=== PATIENT | male | born 1995 | race Caucasian/White ===

== ENCOUNTER 2017-07-12 13:54 | Emergency (ER) | payer OTHER ==
[2017-07-12 14:50] LABS: #Eosinphils 0.2 thou/uL (0.0-0.7); #Lymphocytes 2.2 thou/uL (1.20-3.40); #Monocytes 0.4 thou/uL (0.11-0.59); #Neutrophils 8.1 thou/uL (1.40-6.50); %Basophils 0.2 % (0.0-1.0); %Eosinophils 1.8 % (0.0-10.0); %Lymphocytes 19.9 % (21.0-51.0); %Monocytes 3.6 % (0.0-10.0); %Neutrophils 74.5 % (42.0-75.0); Hemoglobin 14.9 g/dL (14.0-18.0); Mean Corpuscular HGB CONC 35.2 g/dL (32.0-36.0); Mean Corpuscular Hemoglobin 32.5 pg (27.0-31.0); Mean Corpuscular Volume 92.2 fl (80.0-94.0); Platelet Count 182 thou/uL (130-400); RBC Distribution Width 11.4 % (11.5-14.5); Red Blood Cell (RBC) Count 4.59 mill/uL (4.70-6.10); White Blood Cell (WBC) Count 10.8 thou/uL (4.8-10.8)
[2017-07-12 15:13] LABS: ALT (SGPT) 9 U/L (8-55); AST (SGOT) 15 U/L (5-34); Albumin 4.1 g/dL (3.5-5.0); Alkaline Phosphatase 66 U/L (40-150); Anion Gap 15 mmol/L (10-20); BUN (Urea Nitrogen) 17 mg/dL (8.9-20.6); Bilirubin, Total 0.7 mg/dL (0.2-1.2); Calc. Creatinine Clearance 0 mL/min (70-130); Calcium 8.9 mg/dL (7.8-10.44); Carbon Dioxide 24 mmol/L (22-29); Chloride 107 mmol/L (98-107); Estimated GFR-MDRD Greater than 90; Globulin 2.4 g/dL (2.4-3.5); Glucose 94 mg/dL (70-105); Potassium 3.7 mmol/L (3.5-5.1); Protein, Total 6.5 g/dL (6.0-8.3); Sodium 142 mmol/L (136-145)
--- NOTE | 2017-07-12 15:21 | CT ---
BRAIN CT WITHOUT IV CONTRAST: Date: 07/12/17 HISTORY: 21-year-old male with history of syncope, and nausea and vomiting since 8:00 this morning. FINDINGS: No focal mass or midline shift. No intra or extra-axial hemorrhage. Minimal right maxillary sinus muc osal changes. IMPRESSION: No mass or bleed, or other acute process. POS: [facility]
[2017-07-12] MEDS ORDERED: Morphine 10 MG/ML VIAL ONE (15:28)
[2017-07-12] MEDS ORDERED: Lidocaine 1% w/Epinephrine 1:100K 20 ML VIAL ONE (15:32)
== END 2017-07-12 15:55 | disposition home or self-care (01) ==
LOC: ERS 13:54
DX: S01.01XA Laceration without foreign body of scalp, initial encounter (principal); W19.XXXA Unspecified fall, initial encounter
CPT/HCPCS: 12002; 36415; 70450; 80053; 84146; 85025; 93005; 96361; 96374; J2001; J2270

== ENCOUNTER 2017-07-26 09:39 | Outpatient (CLI) | payer OTHER ==
--- NOTE | 2017-07-26 12:15 | MRI ---
MRI BRAIN WITH AND WITHOUT IV CONTRAST: Date: 07/26/17 HISTORY: Syncope. FINDINGS: No infarct, hemorrhage, mass, midline shift, or abnormal extra-axial fluid collections are seen. The ventricular size is normal and the basilar cisterns are patent. No restricted diffusion is noted. No abnormal postcontrast enhancement is seen. There is mucosal disease in the right maxillary sinus. IMPRESSION: Normal MRI of the brain. POS: [facility]
== END 2017-07-26 09:40 | disposition home or self-care (01) ==
LOC: EEG 09:39
PROVIDERS: ATTEND Psychiatry & Neurology Neurology
DX: R55 Syncope and collapse (principal)
CPT/HCPCS: 70553; 95816